=== PATIENT | female | born 1985 | race Caucasian/White ===

== ENCOUNTER 2016-07-12 14:57 | Outpatient (CLI) | payer OTHER | END 2016-07-12 23:59 | DX: Z01.419 Encounter for gynecological examination (general) (routine) without abnormal findings (principal) ==

== ENCOUNTER 2016-11-04 15:04 | Outpatient (CLI) | payer OTHER ==
[2016-11-07 07:37] LABS: TEST RESULT REPORT (())
== END 2016-11-04 15:05 | disposition home or self-care (01) ==
LOC: LAB 15:04
PROVIDERS: ATTEND Obstetrics & Gynecology
DX: Z11.3 Encounter for screening for infections with a predominantly sexual mode of transmission (principal)
CPT/HCPCS: 81599

== ENCOUNTER 2016-11-16 10:39 | Outpatient (CLI) | payer OTHER | END 2016-11-16 10:40 | disposition home or self-care (01) | LOC: LAB.WCP 10:39 | PROVIDERS: ATTEND Registered Nurse | DX: Z20.2 Contact with and (suspected) exposure to infections with a predominantly sexual mode of transmission (principal) | CPT/HCPCS: 36415; 81599; 84702; 86317; 86780; 86803; 87340; 87389 ==

== ENCOUNTER 2017-03-27 17:54 | Emergency (ER) | payer OTHER ==
[2017-03-27 18:05] VITALS: BP 139/82
--- NOTE | 2017-03-27 19:04 | XRAY Report ---
EXAM: CHEST RADIOGRAPHY EXAM DATE: 03/27/2017 06:19 PM. CLINICAL HISTORY: Cough. COMPARISON: None. TECHNIQUE: 2 views. FINDINGS: Lungs/Pleura: No consolidation, airspace disease, pleural effusion or pneumothorax. Right lower lung small dense nodule measures 4 mm, could represent a calcified pulmonary nodule versus cross section o f a vessel. Mediastinum: Heart and mediastinal contours are unremarkable. IMPRESSION: No acute cardiopulmonary disease seen. [facility] Referring Provider Line: [phone] SITE ID: [id number]
--- NOTE | 2017-03-27 19:42 | ED Physician Documentation ---
PD HPI URI - Stated complaint Stated Complaint: COUGH - Chief complaint Chief Complaint: Resp - History obtained from History obtained from: Patient, Family - History of Present Illness Timing - onset: How many weeks ago (2) Timing duration: Weeks (2) Timing details: Gradual onset Pain level max: 0 Pain level now: 0 Associated symptoms: Fever (1.5 weeks ago), Nasal congestion, Rhinorrhea, Dry cough, Chest pain (with coughing). No: Sinus pain, Sore throat, Dyspnea, NVD Contributing factors: Sick contact Improves by: Rest Worsened by: Activity, Breathing Similar symptoms before: Diagnosis (URI) Review of Systems Nose: reports: Rhinorrhea / runny nose, Congestion Respiratory: reports: Cough GI: denies: Abdominal Pain, Vomiting, Diarrhea : denies: Dysuria, Frequency, Hesitancy, Now EGA Skin: denies: Rash PD PAST MEDICAL HISTORY - Past Medical History Past Medical History: No - Past Surgical History Past Surgical History: Yes HEENT: Tonsil/Adenoidectomy - Present Medications Home Medications: Ambulatory Orders Medication Instructions Recorded Confirmed Benzonatate [Tessalon Perle] 100 - 200 mg PO TID PRN #30 capsule 03/27/17 Guaifenesin/Dextromethorphan [[facility] 10 ml PO Q6H #1 bottle 03/27/17 Tussin Dm Liquid] - Allergies Allergies/Adverse Reactions: Allergies Allergy/AdvReac Type Severity Reaction Status Date / Time Penicillins Allergy Hives Verified 03/27/17 18:05 - Social History Does the pt smoke?: No Smoking Status: Never smoker Does the pt drink ETOH?: No Does the pt have substance abuse?: No - Immunizations Immunizations are current?: Yes PD ED PE NORMAL - Vitals Vital signs reviewed: Yes - General General: Alert and oriented X 3, No acute distress, Well developed/nourished - HEENT HEENT: PERRL, Ears normal, Moist mucous membranes, Pharynx benign - Neck Neck: Supple, no meningeal sign - Cardiac Cardiac: RRR, Strong equal pulses - Respiratory Respiratory: No respiratory distress, Clear bilaterally - Abdomen Abdomen: Soft, Non tender, Non distended - Back Back: No CVA TTP - Derm Derm: Warm and dry, No rash - Neuro Neuro: Alert and oriented X 3 - Psych Psych: Normal mood, Normal affect Results - Vitals Vitals: Vital Signs - 24 hr 03/27/17 18:02 Temperature 36.3 C L Heart Rate 94 Respiratory 18 Rate Blood Pressure 139/82 H O2 Saturation 98 Oxygen O2 Source Room air - Rads (name of study) cxr Radiology: Prelim report reviewed, EMP read contemporaneously, See rad report ( normal) PD MEDICAL DECISION MAKING - ED course Complexity details: reviewed results, re-evaluated patient, considered differential, d/w patient ED course: Patient is a 31-year-old female presents to the emergency department what appears to be a viral upper respiratory infection. She is well-appearing, nontoxic. Afebrile. No hypoxia. No respiratory distress. No acute findings on chest x-ray. Will prescribe cough medication for home and continue supportive care. Patient counseled regarding signs and symptoms for which I believe and urgent re-evaluation would be necessary. Patient with good understanding of and agreement to plan and is comfortable going home at this time This document was made in part using voice recognition software. While efforts are made to proofread this document, sound alike and grammatical errors may occur. Departure - Departure Disposition: 01 Home, Self Care Clinical Impression: Upper respiratory tract infection Qualifiers: URI type: unspecified viral URI Qualified Code(s): J06.9 - Acute upper respiratory infection, unspecified Condition: Good Instructions: ED URI Viral Follow-Up: Snow Esquivel PA-C [Primary Care Provider] - Within 1 week Prescriptions: Benzonatate [Tessalon Perle] 100 - 200 mg PO TID PRN #30 capsule PRN Reason: Cough Guaifenesin/Dextromethorphan [[facility] Tussin Dm Liquid] 10 ml PO Q6H #1 bottle Comments: Return if you worsen. Drink plenty of fluids and rest. Discharge Date/Time: 03/27/17 19:46
== END 2017-03-27 19:46 | disposition home or self-care (01) ==
LOC: ED 17:54
DX: J06.9 Acute upper respiratory infection, unspecified (principal); B97.89 Other viral agents as the cause of diseases classified elsewhere
CPT/HCPCS: 71046; 99283

== ENCOUNTER 2017-05-15 08:00 | Outpatient (CLI) | payer OTHER | END 2017-05-15 08:01 | disposition home or self-care (01) | LOC: LAB.R 08:00 | PROVIDERS: ATTEND Nurse Practitioner Obstetrics & Gynecology | DX: Z20.2 Contact with and (suspected) exposure to infections with a predominantly sexual mode of transmission (principal) | CPT/HCPCS: 87491; 87591 ==

== ENCOUNTER 2017-05-15 10:24 | Outpatient (CLI) | payer OTHER ==
[2017-05-16 12:36] LABS: HEPATITIS C ANTIBODY NON-REACTIVE (NON-REACTIVE)
[2017-05-16 14:31] LABS: HIV AG/AB 4TH GEN NON-REACTIVE (NON-REACTIVE)
[2017-05-17 11:11] LABS: HSV 2 IGG TYPE SPECIFIC AB <0.90 index
== END 2017-05-15 10:25 | disposition home or self-care (01) ==
LOC: LAB 10:24
PROVIDERS: ATTEND Nurse Practitioner Obstetrics & Gynecology
DX: Z20.2 Contact with and (suspected) exposure to infections with a predominantly sexual mode of transmission (principal)
CPT/HCPCS: 36415; 81599; 86592; 86695; 86696; 86803; 87389; 87491; 87591

== ENCOUNTER 2017-08-06 03:09 | Emergency (ER) | payer OTHER ==
[2017-08-06 03:15] VITALS: BP 136/82
[2017-08-06] MEDS ORDERED: BENZONATATE 100 MG CAPSULE PO STA (03:17)
--- NOTE | 2017-08-06 03:40 | ED Physician Documentation ---
PD HPI URI - Stated complaint Stated Complaint: COUGH - Chief complaint Chief Complaint: Resp - History obtained from History obtained from: Patient - History of Present Illness Timing - onset: How many days ago (4) Timing details: Intermittant Associated symptoms: Dry cough. No: Fever, Chills Similar symptoms before: Work up / diagnostics Recently seen: Not recently seen - Additional information Additional information: Patient is a 32 year old female with no significant past medical history who is presenting to the emergency department for cough. patient states that it has been going on for the last 4-5 days. Patient states that medications aren't helping and she cannot sleep so she came to the emergency department for evaluation. Upon initial evaluation patient is well appearing and in no distress. Review of Systems Ten Systems: 10 systems reviewed and negative Constitutional: denies: Fever, Chills Cardiac: denies: Chest pain / pressure, Palpitations, Pedal edema Respiratory: reports: Cough. denies: Hemoptysis, Wheezing PD PAST MEDICAL HISTORY - Past Medical History Past Medical History: No - Past Surgical History Past Surgical History: Yes HEENT: Tonsil/Adenoidectomy - Present Medications Home Medications: Ambulatory Orders Medication Instructions Recorded Confirmed Benzonatate [Tessalon Perle] 100 - 200 mg PO TID PRN #30 capsule 03/27/17 Guaifenesin/Dextromethorphan [[facility] 10 ml PO Q6H #1 bottle 03/27/17 Tussin Dm Liquid] Benzonatate [Tessalon] 100 mg PO TID #20 capsule 08/06/17 Codeine Phosphate/Guaifenesin 5 ml PO DAILY #100 ml 08/06/17 [Guaifen-Codeine 100-10 mg/5 ml] - Allergies Allergies/Adverse Reactions: Allergies Allergy/AdvReac Type Severity Reaction Status Date / Time Penicillins Allergy Hives Verified 03/27/17 18:05 - Social History Does the pt smoke?: No Smoking Status: Never smoker Does the pt drink ETOH?: No Does the pt have substance abuse?: No - Immunizations Immunizations are current?: Yes - POLST Patient has POLST: No PD ED PE NORMAL - Vitals Vital signs reviewed: Yes - General General: Alert and oriented X 3, No acute distress, Well developed/nourished - HEENT HEENT: Atraumatic, PERRL, Ears normal, Moist mucous membranes, Pharynx benign - Neck Neck: Supple, no meningeal sign, No JVD - Cardiac Cardiac: RRR, No murmur - Respiratory Respiratory: No respiratory distress, Clear bilaterally - Abdomen Abdomen: Soft, Non tender, Non distended - Derm Derm: Normal color, Warm and dry - Extremities Extremities: No deformity - Neuro Neuro: Alert and oriented X 3 Eye Opening: Spontaneous - Psych Psych: Normal mood Results - Vitals Vitals: Vital Signs - 24 hr 08/06/17 03:13 Temperature 36.3 C L Heart Rate 80 Respiratory 16 Rate Blood Pressure 136/82 H O2 Saturation 99 Oxygen O2 Source Room air - Rads (name of study) chest x-ray Radiology: Final report received, EMP read contemporaneously (normal) PD MEDICAL DECISION MAKING - ED course Complexity details: reviewed old records, reviewed results, re-evaluated patient , considered differential, d/w patient ED course: patient was seen and examined at bedside. patient was well appearing and in no distress. chest x-ray was ordered and patient was treated with tessalon. When patient returned from imaging results were reviewed. there was no acute abnormalities. patient required no further work up and was stable for discharge with outpatient follow up. Departure - Departure Disposition: 01 Home, Self Care Clinical Impression: Upper respiratory tract infection Condition: Good Instructions: ED Viral Syndrome Follow-Up: Snwo Esquivel PA-C [Primary Care Provider] - Within 3 Days Prescriptions: Benzonatate [Tessalon] 100 mg PO TID #20 capsule Codeine Phosphate/Guaifenesin [Guaifen-Codeine 100-10 mg/5 ml] 5 ml PO DAILY # 100 ml Comments: Your diagnostics today were within normal limits. there is no sign of pneumonia. You symptoms are likely viral or allergic in nature. You can take over the counter cold and allergy medication. You have been prescribed two different cough medicines. If you take the one with codeine you cannot drive, operate heavy machinery or take it with other sedatives. You should follow up with your doctor if your symptoms don't improve. You may return to the emergency department at any time for new, worsening or uncontrollable symptoms.
--- NOTE | 2017-08-06 03:43 | XRAY Report ---
EXAM: CHEST RADIOGRAPHY EXAM DATE: 08/06/2017 03:34 AM. CLINICAL HISTORY: Cough. COMPARISON: 03/27/2017. TECHNIQUE: 1 view. FINDINGS: Lungs/Pleura: No focal opacities evident. No pleural effusion. No pneumothorax. Mediastinum: Within exam limitations, the cardiomediastinal contour is normal. Other: None. IMPRESSION: Stable negative single view chest. [facility] Referring Provider Line: [phone] SITE ID: [id number]
== END 2017-08-06 03:55 | disposition home or self-care (01) ==
LOC: ED 03:09
DX: J06.9 Acute upper respiratory infection, unspecified (principal)
CPT/HCPCS: 71045; 99283